=== PATIENT | male | born 1985 | race Caucasian/White ===

== ENCOUNTER 2016-05-29 06:38 | Inpatient (IN) | payer OTHER ==
--- NOTE | ~2016-05-29 | PN ---
Unit #: [id number] #: [id number] Patient: AMADOU MARKS [id number] [facility] [address] [place] [address] [id number] MR#: [id number] NAME: AMADOU MARKS ROOM: P208 Age: 30 Sex: M Admission Date: 05/29/2016 : 1985 Attending Physician: Venkat Bedolla M.D. Admitting Physician: Venkat Bedolla M.D. Primary Care Physician: Primary Care Physician Viji MARTINO PROGRESS NOTES DATE 05/30/2016 DISCUSSION Amadou is a 30-year-old male, seen on 05/30/2016. The patient interviewed, chart reviewed, and obtained information from the nursing staff. The patient was compliant and cooperative, able to maintain safe behavior. Mood sad and dysphoric, flat affect, and guarded. REVIEW OF SYSTEMS Complete review of systems unremarkable. MENTAL STATUS EXAMINATION General appearance: Patient dressed casually. Attention span and concentration, fair. Oriented to place and person. Mood and affect, labile. Speech, monotone. Thought process, concrete. The patient denied any thoughts of harming self or others or any psychotic symptoms. Recent and remote memory, poor. Insight and judgment, poor. DIAGNOSIS Mood disorder, NOS. ASSESSMENT/PLAN Advised to continue with the current medication and therapeutic protocol and will monitor response to medication, and make further adjustment of medication. If the patient is doing well plan to consider discharge this week. Dictated by... Radha Cline/ambika TD: 06/02/2016 08:51 JOB #: [id number] Unit #: [id number] #: [id number] Patient: AMADOU MARKS PROGRESS NOTES Page 1 of 1 X Venkat Bedolla MD X PROGRESS NOTE
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
--- NOTE | ~2016-05-29 | HP ---
Unit #: [id number] #: [id number] Patient: MARV MARKS [id number] [place] [address] [id number] MR#: [id number] NAME: MARV MARKS ROOM: P208 Age: 30 Sex: M Admission Date: 05/29/2016 : 1985 Attending Physician: Venkat Bedolla M.D. Admitting Physician: Venkat Bedolla M.D. Primary Care Physician: Primary Care Physician No HISTORY AND PHYSICAL HISTORY OF PRESENT ILLNESS The patient is a 30-year-old male admitted to [address] [place] [address] on 05/29/2016 for suicidal ideation. PAST MEDICAL HISTORY Asthma and polysubstance abuse PAST SURGICAL HISTORY 1. Pectoral surgery as a child. 2. Appendectomy. SOCIAL HISTORY The patient is unemployed. He lives with his mother. He smokes 5 cigarettes per day. His tox screen was positive for cocaine and heroin. FAMILY MEDICAL HISTORY Noncontributory. ALLERGIES No known drug allergies. CURRENT MEDICATIONS Patient is not on any home medications. REVIEW OF SYSTEMS CONSTITUTIONAL: No fever or chills. HEENT: Denies any sore throat, ear pain or runny nose. CARDIOVASCULAR: Denies chest pain, irregular heart rhythm or palpitations. CHEST: Denies shortness of breath or cough. No hemoptysis. GASTROINTESTINAL: Denies nausea, vomiting, diarrhea or chronic constipation. ENDOCRINE: Denies history of increased thirst or urination. No recent significant weight loss or gain. GENITOURINARY: Denies dysuria, frequency, or hematuria. SKIN: Denies any rashes. HEMATOLOGIC: Denies history of increased bleeding or bruising. MUSCULOSKELETAL: Denies any hot, swollen joints. No generalized muscle pain. NEUROLOGIC: Denies problems with vision or speech. No frequent, severe headaches. No numbness, tingling or weakness in any extremities. Denies loss of bladder or bowel control. PHYSICAL EXAM Unit #: [id number] #: [id number] Patient: MARV MARKS GENERAL: He is awake, alert and oriented in no acute distress. VITAL SIGNS: Temperature 98.5, heart rate 80, respiration 18, blood pressure 128/79. HEIGHT: 6'0". WEIGHT: 125 pounds. SKIN: Warm and dry without rash or lesion. HEENT: Normocephalic. TMs not viewed. Oral and nasal passages clear. Conjunctivae clear. PERRLA. EOMs intact. NECK: Supple without lymphadenopathy or thyromegaly. HEART: Regular rate and rhythm without murmur. LUNGS: Clear. ABDOMEN: Soft, nontender. : Not done. EXTREMITIES: No evidence of cyanosis, clubbing or edema. Moves all without focal deficit. NEUROLOGICAL: Grossly within normal limits. Cranial Nerves: II: Visual triana are intact. III, IV AND : Extraocular movements are intact. Pupils are equal, round and reactive to light. V: Facial sensation is grossly normal. VII: Facial movements and expression are normal. VIII: Auditory acuity grossly intact. IX, X: Uvula is midline. Phonation is normal. XI: Patient shrugs shoulders and turns head normally. XII: Tongue protrudes in the midline. Sensory and Motor Function: Sensory and motor sensation is grossly normal. Motor: moves all extremities well. IMPRESSION 1. Psychiatric admission. 2. Poly substance use. 3. Asthma. RECOMMENDATIONS Psychiatric per psychiatrist. MEDICAL: No contraindication to participate in facility activities. MEDICAL PROGNOSIS Good. MEDICAL CONDITION Stable. Dictated by... Adán Rebolledo/peter TD: 05/29/2016 21:07 JOB #: [id number] Unit #: [id number] #: [id number] Patient: MARV MARKS HISTORY AND PHYSICAL Page 1 of 1 X IRVIN BATISTA APRN HISTORY AND PHYSICAL
--- NOTE | ~2016-05-29 | DS ---
Unit #: [id number] #: [id number] Patient: MARV MARKS [id number] [facility] [address] [place] [address] [id number] MR#: [id number] NAME: MARV MARKS ROOM: P208 Age: 30 Sex: M Admission Date: 05/29/2016 : 1985 Discharge Date: 05/31/2016 Attending Physician: Venkat Bedolla M.D. Primary Care Physician: Primary Care Physician No DISCHARGE SUMMARY REASON FOR ADMISSION On MIW, aggression and suicidal ideation. DIAGNOSTIC STUDIES LABORATORY RESULTS: Unremarkable. HOSPITAL COURSE The patient was admitted to inpatient unit on 05/29/2016 and discharged on 05/31/2016. The patient was treated on the inpatient unit with group therapy, individual therapy, medication management, chemical dependency group. The patient responded well with the above modalities of treatment. Subsequently, the patient was discharged with a plan to follow up in outpatient program. DISCHARGE MEDICATIONS None. DISCHARGE DIAGNOSES Psychiatric: 1. Mood disorder, not otherwise specified, F32.9. 2. Amphetamine use disorder, severe, F15.20. 3. Cocaine use disorder, severe, F14.20. 4. Alcohol use disorder, severe, F10.20. Secondary diagnosis: Deferred. Medical diagnosis: Asthma. Stressors: Psychosocial stressors. DISCHARGE INSTRUCTIONS The patient to follow up in outpatient clinic as per perinatal social worker. CONDITION ON DISCHARGE The patient was pleasant and cooperative. Denied any psychotic symptom or any suicidal ideation. PROGNOSIS Guarded. DIET AND ACTIVITY As tolerated. Dictated by... Unit #: [id number] #: [id number] Patient: MARV MARKS Radha ClineC/adenike TD: 06/01/2016 07:50 JOB #: [id number] DISCHARGE SUMMARY Page 1 of 1 X Venkat Bedolla MD X DISCHARGE SUMMARY
== END 2016-05-31 10:21 | disposition home or self-care (01) | DRG 885 ==
LOC: P2S 06:38
DX: F39 Unspecified mood [affective] disorder (principal); F14.20 Cocaine dependence, uncomplicated; F15.20 Other stimulant dependence, uncomplicated; F32.9 Major depressive disorder, single episode, unspecified; F10.20 Alcohol dependence, uncomplicated; J45.909 Unspecified asthma, uncomplicated; Z56.0 Unemployment, unspecified; Z72.0 Tobacco use; F41.9 Anxiety disorder, unspecified